=== PATIENT | male | born 1995 ===

== ENCOUNTER 2017-01-27 18:46 | Emergency (ER) | payer MEDICAID, OTHER ==
[2017-01-27 18:59] VITALS: BP 123/71; PULSE 63; RESP 19; TEMP 98.1; O2SAT 98
--- NOTE | 2017-01-27 19:07 | ED PDOC ---
HPI: Eye Injury/Pain Time Seen by Provider: 01/27/17 19:00 Chief Complaint (Nursing): Eye Problem Chief Complaint (Provider): Eye Problem History Per: Patient History/Exam Limitations: no limitations Onset/Duration Of Symptoms: Days (x1) Additional Complaint(s): Patient complains of left eye pain and irritation occurring for 1 day prior to arrival. He denies any changes in vision, fever, chills, or headache. The patient does not have any pertinent past medical history other than a previous eye surgery. PMD: none provided Past Medical History Reviewed: Historical Data, Nursing Documentation, Vital Signs Vital Signs: Last Vital Signs Temp 98.1 F 01/27/17 18:56 Pulse 63 01/27/17 18:56 Resp 19 01/27/17 18:56 BP 123/71 01/27/17 18:56 Pulse Ox 98 01/27/17 18:56 - Medical History PMH: No Chronic Diseases - Surgical History Other surgeries: eye surgery - Family History Family History: States: Unknown Family Hx - Social History Current smoker - smoking cessation education provided: No Ex-Smoker (has not smoked in the last 12 months): No Alcohol: None Drugs: Denies - Immunization History Hx Tetanus Toxoid Vaccination: No (does not know) Hx Influenza Vaccination: No Hx Pneumococcal Vaccination: No - Home Medications Home Medications: Ambulatory Orders Medication Instructions Recorded Amoxicillin/Clavulanate [Augmentin 1 tab PO BID #14 tab 01/27/16 875 MG-125 MG] Prednisone [Deltasone] 40 mg PO DAILY #6 tablet 01/27/16 Cephalexin [Keflex] 500 mg PO BID #20 capsule 01/27/17 Polymyxin/Trimethoprim Sulfate 1 drop XX Q6H 10 Days 01/27/17 [Polytrim Ophth Soln] - Allergies Allergies/Adverse Reactions: Allergies Allergy/AdvReac Type Severity Reaction Status Date / Time No Known Allergies Allergy Verified 01/27/16 18:54 Review of Systems ROS Statement: Except As Marked, All Systems Reviewed And Found Negative Constitutional: Negative for: Fever, Chills Eyes: Positive for: Pain (left eye pain and irritation ). Negative for: Vision Change Neurological: Negative for: Headache Physical Exam - Reviewed Nursing Documentation Reviewed: Yes Vital Signs Reviewed: Yes - Physical Exam Appears: Positive for: Well, Non-toxic, No Acute Distress Head Exam: Positive for: ATRAUMATIC, NORMAL INSPECTION, NORMOCEPHALIC Skin: Positive for: Normal Color, Warm, Dry Eye Exam: Positive for: Normal appearance, EOMI, PERRL, Periorbital swelling ( mild swelling and localized erythema to lower left eyelid), Other (no drainage ) . Negative for: Scleral icterus ENT: Positive for: Normal ENT Inspection Neck: Positive for: Normal Respiratory: Negative for: Accessory Muscle Use, Respiratory Distress Neurologic/Psych: Positive for: Alert, Oriented - ECG O2 Sat by Pulse Oximetry: 98 (RA) Pulse Ox Interpretation: Normal Medical Decision Making Medical Decision Making: Impression: Left eye pain and irritation Plan: Administration of antibiotics and eye drops. Patient agrees to treatment plan and medication administered. Scribe Attestation: Documented by Millie Jones, acting as a scribe for Sally Herrera PA-C. Provider Scribe Attestation: All medical record entries made by the Scribe were at my direction and personally dictated by me. I have reviewed the chart and agree that the record accurately reflects my personal performance of the history, physical exam, medical decision making, and the department course for this patient. I have also personally directed, reviewed, and agree with the discharge instructions and disposition. Disposition - Clinical Impression Clinical Impression: Sty - Disposition Referrals: Pj Rasmussen MD [Staff Provider] - Disposition Time: 19:58 Condition: STABLE Additional Instructions: Warm compressed. If symptoms do not resolve please follow-up with eye doctor. Prescriptions: Cephalexin [Keflex] 500 mg PO BID #20 capsule Polymyxin/Trimethoprim Sulfate [Polytrim Ophth Soln] 1 drop XX Q6H 10 Days Instructions: Mati (ED)
== END 2017-01-27 20:10 | disposition home or self-care (01) ==
LOC: H.ER 18:46
DX: H00.012 Hordeolum externum right lower eyelid (principal)